=== PATIENT | female | born 1985 | race Caucasian/White ===

== ENCOUNTER 2017-03-30 17:13 | Emergency (ER) | payer BC, MEDICAID ==
[2017-03-30 17:18] VITALS: O2SAT 100
--- NOTE | 2017-03-30 18:06 | C.PDOC ---
Time Seen by Provider: 03/30/17 17:26 Chief Complaint (Nursing): Female Genitourinary Past Medical History Vital Signs: Last Vital Signs Temp 98 F 03/30/17 17:16 Pulse 72 03/30/17 17:16 Resp 20 03/30/17 17:16 BP 145/90 03/30/17 17:16 Pulse Ox 100 03/30/17 17:16 - Medical History PMH: Anemia, Migraine Denies: Chronic Kidney Disease Family History: States: Unknown Family Hx - Social History Hx Tobacco Use: No Hx Alcohol Use: No Hx Substance Use: No - Immunization History Hx Tetanus Toxoid Vaccination: No Hx Influenza Vaccination: No Hx Pneumococcal Vaccination: No ED Course And Treatment O2 Sat by Pulse Oximetry: 100 Disposition - Disposition
--- NOTE | 2017-03-30 18:19 | C.PDOC ---
History Of Present Illness <Edith Lyons - Last Filed: 03/30/17 19:04> <Jyoti Mckoy - Last Filed: 03/30/17 22:04> 31 y/o female c/o dry cough x 1 week and feels sob with exertion, no fever or chills, no leg pain or swelling, no chest pain, pt also with lower abdominal pressure x 4 days with urinary symptoms, and has spotting with urination though the week, pt recently finished a 10 day course of unk antibiotics for uti with return of symptoms. pt learned she is yesterday. (Edith Lyons) History Per: Patient History/Exam Limitations: no limitations Onset/Duration Of Symptoms: Days (5) Current Symptoms Are (Timing): Still Present Severity: Moderate Pain Scale Rating Of: 6 Quality Of Discomfort: Burning Associated Symptoms: Urinary Symptoms. denies: Fever, Chills, Nausea, Vomiting Alleviating Factors: None Recent travel outside of the [place]: No <Edith Lyons - Last Filed: 03/30/17 19:04> <Jyoti Mckoy - Last Filed: 03/30/17 22:04> Time Seen by Provider: 03/30/17 17:26 Chief Complaint (Nursing): Female Genitourinary Past Medical History Reviewed: Historical Data, Nursing Documentation, Vital Signs - Medical History PMH: Anemia, Migraine Denies: Chronic Kidney Disease Family History: States: Unknown Family Hx - Social History Hx Tobacco Use: No Hx Alcohol Use: No Hx Substance Use: No - Immunization History Hx Tetanus Toxoid Vaccination: No Hx Influenza Vaccination: No Hx Pneumococcal Vaccination: No <Edith Lyons - Last Filed: 03/30/17 19:04> Vital Signs: Last Vital Signs Temp 98.6 F 03/30/17 20:56 Pulse 66 03/30/17 20:56 Resp 14 03/30/17 20:56 BP 121/78 03/30/17 20:56 Pulse Ox 100 03/30/17 20:56 Review Of Systems Constitutional: Negative for: Fever, Chills Cardiovascular: Negative for: Chest Pain, Light Headedness Respiratory: Positive for: Cough, SOB with Excertion. Negative for: Hemoptysis , Wheezing Gastrointestinal: Positive for: Abdominal Pain. Negative for: Nausea, Vomiting Genitourinary: Positive for: Dysuria, Frequency, Vaginal Bleeding (spotting with urination) Skin: Negative for: Rash Neurological: Negative for: Weakness, Numbness <Edith Lyons - Last Filed: 03/30/17 19:04> Physical Exam - Physical Exam Appears: Non-toxic, No Acute Distress Skin: Normal Color, Warm, Dry Head: Atraumatic, Normacephalic Neck: Normal ROM, Supple Chest: Symmetrical, No Deformity, No Tenderness Cardiovascular: Rhythm Regular Respiratory: Normal Breath Sounds, No Accessory Muscle Use, No Rales, No Rhonchi , No Stridor, No Wheezing Gastrointestinal/Abdominal: Bowel Sounds, Soft, Tenderness (suprapubic), No Distention, No Guarding, No Rebound Back: No CVA Tenderness <Edith Lyons - Last Filed: 03/30/17 19:04> ED Course And Treatment - Laboratory Results Result Diagrams: 03/30/17 18:25 03/30/17 18:25 O2 Sat by Pulse Oximetry: 100 <Edith Lyons - Last Filed: 03/30/17 19:04> - Laboratory Results Result Diagrams: 03/30/17 18:25 03/30/17 18:25 <Jyoti Mckoy - Last Filed: 03/30/17 22:04> Medical Decision Making <Edith Lyons - Last Filed: 03/30/17 19:04> <Jyoti Mckoy - Last Filed: 03/30/17 22:04> Medical Decision Making: Noted pt is quite anemic,TVUS reveals no IUP.No adnexal masses seen.Spoke with Dr Lassiter who will see pt in ED.No free fluid seen on TVUS. Pt seen by Dr Lassiter of [facility] who feels pt likely miscarried at home,recommends repeat hcg in 2 days.States the pt is chronically anemic due to gastric sleeve placement ( Jyoti Mckoy) Disposition - Disposition Disposition Time: 19:04 <Edith Lyons - Last Filed: 03/30/17 19:04> <Jyoti Mckoy - Last Filed: 03/30/17 22:04> - Disposition Referrals: Carey Lassiter MD [Staff Provider] - Disposition: HOME/ ROUTINE Condition: STABLE Additional Instructions: return to ED for worsening abd pain and or heavy vag bleeding .Otherwise see Dr Lassiter in 2 days for repeat hcg Forms: [employer] ([place]izen [place]), [employer] ([place]) - Clinical Impression Clinical Impression: UTI (urinary tract infection), Anemia, Complete miscarriage Physician Patient Turnover Patient Signed Over To: Jyoti Mckoy Handoff Comments: f/u pelvic u/s labs ua, likely d/c with antibiotics for uti, iron/ vit. <Edith Lyons - Last Filed: 03/30/17 19:04>
[2017-03-30 18:29] LABS: BASO # 0.1 K/uL (0.0-0.2); BASO % 1.2 % (0.0-2.0); EOS # 0.1 K/uL (0.0-0.7); EOS % 1.5 % (0.0-4.0); HEMATOCRIT 26.1 % (34.0-47.0); LYMPH # 2.1 K/uL (1.0-4.3); LYMPH % 39.9 % (20.0-40.0); MEAN CELL VOLUME 72.1 fL (81.0-99.0); MEAN CORPUSCULAR HEMOGLOBIN 22.6 pg (27.0-31.0); MEAN CORPUSCULAR HGB CONC 31.3 g/dL (33.0-37.0); MEAN PLATELET VOLUME 8.9 fL (7.2-11.7); MONO # 0.3 K/uL (0.0-0.8); MONO % 6.2 % (0.0-10.0); RED CELL DISTRIBUTION WIDTH 19.1 % (11.5-14.5); WHITE BLOOD COUNT 5.2 K/uL (4.8-10.8)
[2017-03-30 18:37] LABS: CHLORIDE 100 mmol/L (98-107)
[2017-03-30 18:38] LABS: POTASSIUM 3.8 mmol/L (3.6-5.2); SODIUM 133 mmol/L (132-148)
[2017-03-30 18:40] LABS: ALB/GLOB RATIO 1.1 (1.0-2.1); AST/SGOT 22 U/L (14-36); BILIRUBIN,TOTAL 0.4 mg/dL (0.2-1.3); BLOOD UREA NITROGEN 10 mg/dL (7-17); CARBON DIOXIDE 24 mmol/L (22-30); GFR AFRICAN-AMERICAN > 60; TOTAL PROTEIN 7.8 g/dL (6.3-8.3)
[2017-03-30 18:41] LABS: ALKALINE PHOSPHATASE 46 U/L (38-126); ALT/SGPT 23 U/L (9-52); CALCIUM 8.7 mg/dl (8.6-10.4); GLUCOSE,RANDOM 79 mg/dL (65-105)
[2017-03-30 18:59] LABS: RBC URINE 1 /hpf (0-3); URINE BILIRUBIN NEGATIVE (NEGATIVE); URINE BLOOD 1+ (NEGATIVE); URINE COLOR Yellow (YELLOW); URINE GLUCOSE (UA) NORMAL (Normal); URINE KETONE NEGATIVE (NEGATIVE); URINE LEUKOCYTE ESTERASE NEG Leu/uL (Negative); URINE PROTEIN NEGATIVE (NEGATIVE); WBC URINE 1 /hpf (0-5)
--- NOTE | 2017-03-30 19:49 | US ---
EXAM: US Pelvis Complete, Transabdominal US Pelvis, Transvaginal CLINICAL HISTORY: 31 years old, female; Pain; Pelvic pain; Patient HX: Urine hcg +. Beta not available yet; Additional info: Low ab pain, preg eval for ectopic TECHNIQUE: Real-time transabdominal and transvaginal pelvic ultrasound (complete) with image documentation. Transvaginal imaging was used for better evaluation of the endometrium and adnexa. COMPARISON: No relevant prior studies available. FINDINGS: Uterus/cervix: The uterus measures 11.3 x 5.5 x 6.9 cm. Endometrial stripe is heterogeneous and thickened measuring 3 cm. Right ovary: The right ovary measures 2.6 x 2.1 x 2.8 cm. Blood flow is seen in the right ovary on pulsed Doppler examination. Left ovary: The left ovary measures 3.6 x 3.5 x 4.2 cm and contains 2 simple cysts measuring 2 and 2.6 cm respectively in maximal diameter. Blood flow seen in the left ovary on color Doppler examination. Free fluid: No free fluid. Bladder: Unremarkable as visualized. Wall is normal thickness for degree of distention. IMPRESSION: 1. No evidence of an intrauterine . In the clinical setting of a positive beta hCG and an empty uterus, differential diagnostic considerations include normal very early intrauterine , recently completed and ectopic . Serial beta hCG measurement and followup ultrasound is recommended. 2. Heterogeneous thickened endometrial stripe. The endometrial stripe is better resolved on the transvaginal examination which is detailed in a separate report EXAM: US Pelvis, Transvaginal EXAM DATE/TIME: Exam ordered 03/30/2017 6:02 PM CLINICAL HISTORY: 31 years old, female; Pain; Pelvic pain; Patient HX: Urine hcg +. Beta not available yet; Additional info: Low ab pain, preg eval for ectopic TECHNIQUE: Real-time transvaginal pelvic ultrasound (complete) with image documentation. Transvaginal imaging was used for better evaluation of the endometrium and adnexa. COMPARISON: No relevant prior studies available. FINDINGS: Uterus/cervix: The uterus measures 11.2 x 5 x 6.8 cm. The cervix measures 4.3 cm in length. The endometrial stripe measures 1.4 cm in thickness. There is a intramural posterior corpus fibroid measuring 2.1 x 1.8 x 1.9 cm. The fibroid distorts the adjacent endometrial stripe. There is an anterior corpus intramural fibroid measuring 2.1 x 0.8 x 2.1 cm. Right ovary: The right ovary measures 3.3 x 3 x 3.5 cm. Subcentimeter follicles are present. Left ovary: The left ovary measures 4.6 x 4 x 4.7 cm and contains 2 dominant follicles measuring 2.6 cm and 2 cm respectively in maximum diameter. Blood flow is seen in the left ovary on color Doppler examination. Free fluid: No free fluid. Bladder: Empty bladder which cannot be evaluated with this probe. IMPRESSION: 1. No evidence of an intrauterine . In the clinical setting of a positive beta hCG and an empty uterus, differential diagnostic considerations include normal very early intrauterine , recently completed and ectopic . Serial beta hCG measurement and followup ultrasound is recommended. 2.Fibroid uterus
--- NOTE | 2017-03-30 21:32 | CP.PCM.CON ---
History of Present Illness - History of Present Illness History of Present Illness: 31 y/o @ 4.2 wks by LMP 02/28/2017 AN 12/05/2017 reprots feelign tired and sob over 1 day adn mid lower back pain, no radiatig. pt states she came to ER and found out she was . Pt reports this is an unplanned but desred pregnacy. Pt reports she follows with her retail brand ambassador Dr Haddad regularly. Pt reports some vaigal bleedign 2 days ago, period like. t reports pian is 4/10, non radiaitng, no alleviang or exacebating factors. pt marta any lightheadness, dizzyness, CP, Sob, bowel or bladder complaits. pt reports chornic hx of anemia and denies eatign iron rich rooms or taking iron supplements. OB: FT x 3 hx of preeclampsia, as per pt age 11, 9, 5 years ago [employer]: denies hx of fibroid, ovarian cyst, STI, abnormal pap LMP 02/28/17, q 3 o days x 4 days, dene sintermenstural bleeding or pain IUD removed 1 year ago PMH: Anemia PSH: gastric sleeve FHX: dneies SHX: negative etoh, tobacc/drugs MEDS: none NAllergy: Shellfish Review of Systems - Review of Systems All systems: reviewed and no additional remarkable complaints except - Constitutional Constitutional: As Per HPI - Cardiovascular Cardiovascular: As Per HPI - Respiratory Respiratory: As Per HPI - Gastrointestinal Gastrointestinal: As Per HPI - Genitourinary Genitourinary: As Per HPI - Reproductive: Female Reproductive:Female: As Per HPI Past Patient History - Infectious Disease Hx of Infectious Diseases: None - Past Medical History & Family History Past Medical History?: Yes Past Family History: Reviewed and not pertinent - Past Social History Smoking Status: Never Smoked Chewing Tobacco Use: No Cigar Use: No Alcohol: None - CARDIAC Hx Cardiac Disorders: No - PULMONARY Hx Respiratory Disorders: No - NEUROLOGICAL Hx Migraine: Yes - HEENT Hx HEENT Problems: No - RENAL Hx Chronic Kidney Disease: No - ENDOCRINE/METABOLIC Hx Endocrine Disorders: No - HEMATOLOGICAL/ONCOLOGICAL Hx Anemia: Yes - INTEGUMENTARY Hx Dermatological Problems: No - MUSCULOSKELETAL/RHEUMATOLOGICAL Hx Musculoskeletal Disorders: No - GASTROINTESTINAL Hx Gastrointestinal Disorders: No - GENITOURINARY/GYNECOLOGICAL Hx Genitourinary Disorders: No - PSYCHIATRIC Hx Substance Use: No - SURGICAL HISTORY Hx Surgeries: Yes Hx Gastric Bypass Surgery: Yes (2013) - ANESTHESIA Hx Anesthesia: Yes Hx Anesthesia Reactions: No Meds Allergies/Adverse Reactions: Allergies Allergy/AdvReac Type Severity Reaction Status Date / Time shellfish derived AdvReac VOMITING Verified 03/30/17 17:18 Physical Exam - Constitutional Appears: Well, Non-toxic - Head Exam Head Exam: ATRAUMATIC, NORMAL INSPECTION - Eye Exam Eye Exam: PERRL - ENT Exam ENT Exam: Mucous Membranes Moist, Normal Exam - Neck Exam Neck exam: Positive for: Normal Inspection - Respiratory Exam Respiratory Exam: Clear to Auscultation Bilateral, NORMAL BREATHING PATTERN - Cardiovascular Exam Cardiovascular Exam: +S1, +S2 - GI/Abdominal Exam GI & Abdominal Exam: Normal Bowel Sounds, Soft Additional comments: Non tender, no guardig, no rebound tendernss, no rigidity, +BS - Exam Additional comments: External Genitalia; no gross abnormalites Vagina; No blood, no discharge Cervix; no IUD strings, non tender Uterus: non tender, mobile Adnexa; no masses appreciated, non tender Anus/perineum: grossly normal, block sealer present for evaluation - Extremities Exam Extremities exam: Positive for: normal inspection - Back Exam Back exam: NORMAL INSPECTION Additional comments: negative flank tenderness - Neurological Exam Neurological exam: Alert, CN II-XII Intact, Normal Gait, Oriented x3 - Psychiatric Exam Psychiatric exam: Normal Affect, Normal Mood - Skin Skin Exam: Dry, Intact, Normal Color Results - Vital Signs Recent Vital Signs: Last Vital Signs Temp 98.6 F 03/30/17 20:56 Pulse 66 03/30/17 20:56 Resp 14 03/30/17 20:56 BP 121/78 03/30/17 20:56 Pulse Ox 100 03/30/17 20:56 - Labs Result Diagrams: 03/30/17 18:25 03/30/17 18:25 Labs: Laboratory Results - last 24 hr 03/30/17 03/30/17 03/30/17 18:25 18:25 18:25 WBC 5.2 RBC 3.62 L Hgb 8.2 L Hct 26.1 L MCV 72.1 L MCH 22.6 L MCHC 31.3 L RDW 19.1 H Plt Count 265 MPV 8.9 Neut % (Auto) 51.2 Lymph % (Auto) 39.9 [place] % (Auto) 6.2 Eos % (Auto) 1.5 Baso % (Auto) 1.2 Neut # 2.7 Lymph # 2.1 [place] # 0.3 Eos # 0.1 Baso # 0.1 Sodium 133 Potassium 3.8 Chloride 100 Carbon Dioxide 24 Anion Gap 13 BUN 10 Creatinine 0.6 L Est GFR ( Amer) > 60 Est GFR (Non-Af Amer) > 60 Random Glucose 79 Calcium 8.7 Total Bilirubin 0.4 AST 22 ALT 23 Alkaline Phosphatase 46 Total Protein 7.8 Albumin 4.1 Globulin 3.7 Albumin/Globulin Ratio 1.1 Beta HCG, Quant Urine Color Urine Clarity Urine pH Ur Specific [place] Urine Protein Urine Glucose (UA) Urine Ketones Urine Blood Urine Nitrate Urine Bilirubin Urine Urobilinogen Ur Leukocyte Esterase Urine WBC (Auto) Urine RBC (Auto) Ur Squamous Epith Cells Urine HCG, Qual Positive Blood Type Antibody Screen 03/30/17 03/30/17 03/30/17 18:51 19:00 20:10 WBC RBC Hgb Hct MCV MCH MCHC RDW Plt Count MPV Neut % (Auto) Lymph % (Auto) [place] % (Auto) Eos % (Auto) Baso % (Auto) Neut # Lymph # [place] # Eos # Baso # Sodium Potassium Chloride Carbon Dioxide Anion Gap BUN Creatinine Est GFR ( Amer) Est GFR (Non-Af Amer) Random Glucose Calcium Total Bilirubin AST ALT Alkaline Phosphatase Total Protein Albumin Globulin Albumin/Globulin Ratio Beta HCG, Quant 4164.40 Urine Color Yellow Urine Clarity Clear Urine pH 5.0 Ur Specific [place] 1.025 Urine Protein Negative Urine Glucose (UA) Normal Urine Ketones Negative Urine Blood 1+ H Urine Nitrate Negative Urine Bilirubin Negative Urine Urobilinogen 2.0 H Ur Leukocyte Esterase Neg Urine WBC (Auto) 1 Urine RBC (Auto) 1 Ur Squamous Epith Cells 1 Urine HCG, Qual Blood Type A POSITIVE Antibody Screen Negative Assessment & Plan (1) Early stage of Assessment and Plan: 31 y/o @ 4.2 wks by LMP with early , desired- cannot rule out early vs compelet vs abnormal / ectopic, currently stable - findings dw patient, currenlty stable -reocmmend repeat beta hcg/progesterone in 48 hours -bleeding and pain precautisn given -also f/u OBGYN iwthin 1 week -recommend o/p f/u pcp/hematolgoy re: anemia Status: Acute
[2017-03-30 22:01] VITALS: BP 119/82; PULSE 80; RESP 16; TEMP 98
== END 2017-03-30 22:16 | disposition home or self-care (01) ==
LOC: C.ER 17:13
DX: O26.891 Other specified pregnancy related conditions, first trimester (principal); O23.41 Unspecified infection of urinary tract in pregnancy, first trimester; O99.011 Anemia complicating pregnancy, first trimester; Z3A.01 Less than 8 weeks gestation of pregnancy

== ENCOUNTER 2017-04-19 17:39 | Emergency (ER) | payer BC ==
[2017-04-19 17:49] VITALS: TEMP 98.3
--- NOTE | 2017-04-19 18:05 | C.PDOC ---
History Of Present Illness <Gilda Luna - Last Filed: 04/19/17 18:59> <Pamela Ramos - Last Filed: 04/19/17 21:21> 31 year old female reportedly 7 weeks 1 day by LMP 02/28/17 presents to ED with complaints of lower back pain and vaginal bleeding. Patient states she has been lightly spotting since 03/30 when seen here at the hospital. She was told to follow up with her Ob and made appointment with Dr. Murphy for 05/02/17. Patient states she cannot wait secondary to bleeding, and now bleeding worse with clots noted for 3 days. Patient denies fever, chills, vomiting, dizziness or any other complaints at this time. (Gilda Luna) History Per: Patient History/Exam Limitations: no limitations Onset/Duration Of Symptoms: Days Current Symptoms Are (Timing): Still Present <Gilda Luna - Last Filed: 04/19/17 18:59> <Pamela Ramos - Last Filed: 04/19/17 21:21> Time Seen by Provider: 04/19/17 17:56 Chief Complaint (Nursing): Female Genitourinary Past Medical History Reviewed: Historical Data, Nursing Documentation, Vital Signs - Medical History PMH: Anemia, Migraine Surgical History: No Surg Hx Family History: States: No Known Family Hx - Social History Hx Tobacco Use: No Hx Alcohol Use: No Hx Substance Use: No - Immunization History Hx Tetanus Toxoid Vaccination: No Hx Influenza Vaccination: No Hx Pneumococcal Vaccination: No <Gilda Luna - Last Filed: 04/19/17 18:59> Vital Signs: Last Vital Signs Temp 98.3 F 04/19/17 17:45 Pulse 81 04/19/17 17:45 Resp 18 04/19/17 17:45 BP 116/75 04/19/17 17:45 Pulse Ox 99 04/19/17 18:59 Review Of Systems Constitutional: Negative for: Fever, Chills Gastrointestinal: Negative for: Nausea, Vomiting Genitourinary: Positive for: Vaginal Bleeding Musculoskeletal: Positive for: Back Pain Skin: Negative for: Rash <Gilda Luna - Last Filed: 04/19/17 18:59> Physical Exam - Physical Exam Appears: Non-toxic, No Acute Distress Skin: Warm, Dry, No Rash Head: Atraumatic, Normacephalic Eye(s): bilateral: Normal Inspection, EOMI Oral Mucosa: Moist Neck: Normal ROM, Supple Chest: Symmetrical, No Tenderness Cardiovascular: Rhythm Regular, No Murmur Respiratory: Normal Breath Sounds, No Rales, No Rhonchi, No Wheezing Gastrointestinal/Abdominal: Soft, Tenderness (Mild suprapubic ), No Distention, No Guarding, No Rebound Back: No CVA Tenderness Extremity: Bilateral: Atraumatic, Normal ROM Neurological/Psych: Oriented x3, Normal Speech, Normal Motor, Normal Sensation Gait: Steady <Gilda Luna - Last Filed: 04/19/17 18:59> ED Course And Treatment - Laboratory Results Result Diagrams: 04/19/17 18:07 04/19/17 18:07 O2 Sat by Pulse Oximetry: 99 (RA) Pulse Ox Interpretation: Normal <Gilda Luna - Last Filed: 04/19/17 18:59> - Laboratory Results Result Diagrams: 04/19/17 18:07 04/19/17 18:07 <Pamela Ramos - Last Filed: 04/19/17 21:21> Medical Decision Making <Gilda Luna - Last Filed: 04/19/17 18:59> <Pamela Ramos - Last Filed: 04/19/17 21:21> Medical Decision Making: Impression: with vaginal bleeding possible ectopic vs Prior records reviewed: patient was seen in ED 04/01/17 had labs and US, cannot rule out early vs complete vs abnormal / ectopic. Patient was advised to follow up for repeat BHCG in 48 hours and US in one week Plan: * Labs * [place] Progress: [place] [address] [place], 03/30 BHCG was 4164 H/H 7.03/13 not significantly changed, patient has chronic anemia US is pending. Case signed out to DR Ramos pending US (Gilda Luna) Disposition - Disposition Disposition Time: 19:00 - POA Present On Arrival: None <Gilda Luna - Last Filed: 04/19/17 18:59> Counseled Patient/Family Regarding: Studies Performed, Diagnosis, Need For Followup - Disposition Disposition Time: :20 - POA Present On Arrival: None <Pamela Ramos - Last Filed: 04/19/17 21:21> - Disposition Referrals: Collin Murphy MD [Staff Provider] - Disposition: HOME/ ROUTINE Condition: STABLE Additional Instructions: RETURN TO ER IN 48 HOURS FOR REPEAT ULTRASOUND AND HORMONE LEVEL Instructions: First Trimester Vaginal Bleed (ED) Print Language: SWEDISH - Clinical Impression Clinical Impression: Threatened , Anemia - PA / BROTH SETTER / Resident Statement MD/DO has reviewed & agrees with the documentation as recorded. - Scribe Statement The provider has reviewed the documentation as recorded by the Scribe <Gilda Luna - Last Filed: 04/19/17 18:59> <Pamela Ramos - Last Filed: 04/19/17 21:21> - Scribe Statement Keyla Blanco All medical record entries made by the Scribe were at my direction and personally dictated by me. I have reviewed the chart and agree that the record accurately reflects my personal performance of the history, physical exam, medical decision making, and the department course for this patient. I have also personally directed, reviewed, and agree with the discharge instructions and disposition. (Gilda Luna) Physician Patient Turnover Patient Signed Over To: Pamela Ramos Handoff Comments: Pending US, re-eval and dispo <Gilda Luna - Last Filed: 04/19/17 18:59> Addendum <Gilda Luna - Last Filed: 04/19/17 18:59> <Pamela Ramos - Last Filed: 04/19/17 21:21> Addendum: 04/19/17 21:16 Patient currently resting comfortably, in no pain distress. US shows questionable tiny gestational sac, no evidence of adnexal masses. Beta quant 12k. Explained to patient that there is no current evidence of ectopic, and that at this beta quant level there should be more seen in the uterus. Patient instructed to return to ED in 48 hours for repeat beta and US. She understands she should return to ED sooner if she has worsening symptoms. EXAM: US First Trimester, Transabdominal US , Transvaginal CLINICAL HISTORY: 31 years old, female; Signs and symptoms; Lmp or gestational age (in weeks): 10- 12-17; Other: Bleeding; ; Additional info: Pelvic pain with bleeding TECHNIQUE: Real-time transabdominal and transvaginal obstetrical ultrasound of the maternal pelvis and a first trimester with image documentation. Transvaginal imaging was used for better evaluation of the fetus and adnexa. COMPARISON: PELVIS/TRANSVAG US 2017-03-30 18:32 FINDINGS: Gestation: Uterus measures 11.2 x 5.4 x 6.1 CM. Uterus is heterogeneous. 2 x 1.7 x 1.9 CM posterior fundal fibroid. 1.6 x 1.5 x 1.6 CM right fundal fibroid. Endometrium measures approximately 17 mm in thickness. Tiny, approximately 3 mm subendometrial cyst. Tiny anechoic, thick walled structure in the endometrial canal, too small to fully characterize. This could represent a tiny gestational sac. Uterus/cervix: See above. Ovaries: Right ovary measures 3.9 x 2.9 x 3.4 CM. Left ovary measures 3.9 x 2.7 x 3.5 CM. 2 x 1.8 x 2 CM left ovarian cyst. Free fluid: No free fluid. IMPRESSION: [facility] Final Radiology Report [id number] Name: MICHAEL GARCIA Age: 31Years F Date: 04/19/2017 SSN: [id number] : 1985 Study: US TRANSVAGINAL Requesting Physician: Gilda Luna Images: 92 Addl Studies: [id number] - US TRANSABD FIRST TRIMESTER FIRST GEST (1) Provided Clinical History: pelvic pain with bleeding CONFIDENTIALITY STATEMENT This transmission is confidential and is intended to be a privileged communication. It is intended only for the use of the addressee. Access to this message by anyone else is unauthorized. If you are not the intended recipient, any disclosure, copying, distribution or any action taken, or omitted to be taken in reliance on it is prohibited and may be unlawful. If you received this communication in error, please notify us by telephone, so that return of this document to us can be arranged. Page 2 of 2 1. Questionable, tiny intrauterine gestational sac. 2. Myomatous uterus. 3. 2 CM simple left ovarian cyst. No complex adnexal masses, or free fluid. 4. Recommend clinical followup, serial beta-hCG levels, and repeat ultrasound imaging, if appropriate. Thank you for allowing us to participate in the care of your patient. Dictated and Authenticated by: Ez Escalona M (Afonso, Tania A)
[2017-04-19 18:12] LABS: BASO # 0.1 K/uL (0.0-0.2); BASO % 1.1 % (0.0-2.0); EOS # 0.1 K/uL (0.0-0.7); EOS % 1.8 % (0.0-4.0); HEMATOCRIT 25.9 % (34.0-47.0); LYMPH % 43.5 % (20.0-40.0); MEAN CELL VOLUME 74.4 fL (81.0-99.0); MEAN CORPUSCULAR HEMOGLOBIN 22.7 pg (27.0-31.0); MEAN CORPUSCULAR HGB CONC 30.6 g/dL (33.0-37.0); MEAN PLATELET VOLUME 8.5 fL (7.2-11.7); MONO # 0.3 K/uL (0.0-0.8); MONO % 6.5 % (0.0-10.0); RED CELL DISTRIBUTION WIDTH 19.4 % (11.5-14.5); WHITE BLOOD COUNT 4.6 K/uL (4.8-10.8)
[2017-04-19 18:22] LABS: CHLORIDE 100 mmol/L (98-107); POTASSIUM 3.3 mmol/L (3.6-5.2); SODIUM 134 mmol/L (132-148)
[2017-04-19 18:24] LABS: AST/SGOT 24 U/L (14-36); BILIRUBIN,TOTAL 0.6 mg/dL (0.2-1.3); CARBON DIOXIDE 23 mmol/L (22-30); GFR AFRICAN-AMERICAN > 60
[2017-04-19 18:25] LABS: ALB/GLOB RATIO 1.4 (1.0-2.1); ALKALINE PHOSPHATASE 41 U/L (38-126); ALT/SGPT 25 U/L (9-52); BLOOD UREA NITROGEN 10 mg/dL (7-17); CALCIUM 8.2 mg/dl (8.6-10.4); GLUCOSE,RANDOM 101 mg/dL (65-105); TOTAL PROTEIN 6.9 g/dL (6.3-8.3)
[2017-04-19] MEDS ORDERED: Sodium Chloride 0.9% 1,000 ML IV ONE (18:46)
--- NOTE | 2017-04-19 21:00 | US ---
EXAM: US First Trimester, Transabdominal US , Transvaginal CLINICAL HISTORY: 31 years old, female; Signs and symptoms; Lmp or gestational age (in weeks): 10-12-17; Other: Bleeding; ; Additional info: Pelvic pain with bleeding TECHNIQUE: Real-time transabdominal and transvaginal obstetrical ultrasound of the maternal pelvis and a first trimester with image documentation. Transvaginal imaging was used for better evaluation of the fetus and adnexa. COMPARISON: PELVIS/TRANSVAG US 2017-03-30 18:32 FINDINGS: Gestation: Uterus measures 11.2 x 5.4 x 6.1 CM. Uterus is heterogeneous. 2 x 1.7 x 1.9 CM posterior fundal fibroid. 1.6 x 1.5 x 1.6 CM right fundal fibroid. Endometrium measures approximately 17 mm in thickness. Tiny, approximately 3 mm subendometrial cyst. Tiny anechoic, thick walled structure in the endometrial canal, too small to fully characterize. This could represent a tiny gestational sac. Uterus/cervix: See above. Ovaries: Right ovary measures 3.9 x 2.9 x 3.4 CM. Left ovary measures 3.9 x 2.7 x 3.5 CM. 2 x 1.8 x 2 CM left ovarian cyst. Free fluid: No free fluid. IMPRESSION: 1. Questionable, tiny intrauterine gestational sac. 2. Myomatous uterus. 3. 2 CM simple left ovarian cyst. No complex adnexal masses, or free fluid. 4. Recommend clinical followup, serial beta-hCG levels, and repeat ultrasound imaging, if appropriate.
[2017-04-19 21:28] VITALS: BP 110/85; PULSE 78; RESP 16; O2SAT 98
== END 2017-04-19 21:27 | disposition home or self-care (01) ==
LOC: C.ER 17:39
DX: O20.0 Threatened abortion (principal); O99.011 Anemia complicating pregnancy, first trimester; Z3A.01 Less than 8 weeks gestation of pregnancy

== ENCOUNTER 2017-10-20 17:47 | Inpatient (IN) | payer BC ==
[2017-10-20 17:47] VITALS: BMI 28.3
[2017-10-20 18:24] LABS: HCG,QUALITATIVE URINE POSITIVE (NEGATIVE)
[2017-10-20] MEDS ORDERED: Sodium Chloride 0.9% 1,000 ML IV ONE (18:25)
[2017-10-20 18:27] LABS: SQUAMOUS EPITHIAL 3 /hpf (0-5); URINE BACTERIA MANY (<OCC); URINE BILIRUBIN NEGATIVE (NEGATIVE); URINE BLOOD 1+ (NEGATIVE); URINE CLARITY Hazy (Clear); URINE COLOR Amber (YELLOW); URINE GLUCOSE (UA) NORMAL (Normal); URINE LEUKOCYTE ESTERASE 3+ Leu/uL (Negative); URINE PROTEIN 1+ mg/dL (NEGATIVE)
[2017-10-20 18:51] LABS: VENOUS BLOOD GAS BASE EXCESS 0.4 mmol/L (0.0-2.0); VENOUS BLOOD GAS PCO2 31 mmHg (40-60); VENOUS BLOOD GAS PO2 49 mm/Hg (30-55); VENOUS BLOOD PH 7.48 (7.32-7.43)
[2017-10-20 18:52] LABS: BASO % 0.2 % (0.0-2.0); EOS % 0.1 % (0.0-4.0); LYMPH % 10.9 % (20.0-40.0); MEAN CELL VOLUME 66.9 fL (81.0-99.0); MEAN CORPUSCULAR HEMOGLOBIN 21.1 pg (27.0-31.0); MEAN CORPUSCULAR HGB CONC 31.6 g/dL (33.0-37.0); MEAN PLATELET VOLUME 8.4 fL (7.2-11.7); MONO # 1.2 K/uL (0.0-0.8); MONO % 12.8 % (0.0-10.0); NEUT # 6.8 K/uL (1.8-7.0); NRBC % 0.7 % (0.0-2.0); RBC 2.87 Mil/uL (3.80-5.20); RED CELL DISTRIBUTION WIDTH 19.1 % (11.5-14.5)
[2017-10-20 18:55] LABS: HEMOGLOBIN 6.1 g/dL (11.0-16.0)
[2017-10-20 18:58] LABS: ALB/GLOB RATIO 0.9 (1.0-2.1); ALBUMIN 3.2 g/dL (3.5-5.0); ALT/SGPT 12 U/L (9-52); AST/SGOT 25 U/L (14-36); BLOOD UREA NITROGEN 5 mg/dL (7-17); CALCIUM 8.5 mg/dl (8.6-10.4); GFR AFRICAN-AMERICAN > 60; GFR NON-AFRICAN AMERICAN > 60; LIPASE 69 U/L (23-300)
[2017-10-20] MEDS ORDERED: cefTRIAXone IV 1 gm in Dextros 50 ML IVPB STA (19:25)
[2017-10-20] MEDS ORDERED: cefTRIAXone IV 1 gm in Dextros 50 ML IVPB ONE (19:52)
[2017-10-20] MEDS ORDERED: Sodium Chloride 0.9% 1,000 ML ONE (19:52)
--- NOTE | 2017-10-20 21:56 | US ---
EXAM: US Retroperitoneal Complete, Renal EXAM DATE/TIME: 10/20/2017 6:28 PM CLINICAL HISTORY: 32 years old, female; Pain; Other: Rt flank pain; ; Additional info: Uti, fever, right flank pain, pyelonephritis? TECHNIQUE: Real-time ultrasound of the retroperitoneum (complete) with image documentation. COMPARISON: There are no prior studies for comparison. FINDINGS: Right kidney: Right kidney measures approximately 12 x 6 x 6 cm. There is no pelvocaliectasis. Corticomedullary differentiation is maintained. There is intrarenal flow on color Doppler imaging. Left kidney: Left kidney measures approximately 12 x 5 x 5 cm. Corticomedullary differentiation is maintained. There is no pelvocaliectasis. There is intrarenal flow on color Doppler imaging. Bladder: Partially distended bladder is normal in appearance. Estimated volume is approximately 160 cc. Right ureteral jet was seen on color Doppler imaging. Left ureteral jet was not identified. Other findings: There is an intrauterine gestation. IMPRESSION: Normal size kidneys, no hydronephrosis
--- NOTE | 2017-10-20 22:10 | US ---
EXAM: US Uterus, Limited EXAM DATE/TIME: 10/20/2017 6:30 PM CLINICAL HISTORY: 32 years old, female; Pain; Other: Rt flank pain; Gestational age or lmp: 21wks 2 d; ; Additional info: Pain, fever, R/O ectopic or infection. TECHNIQUE: Real-time ultrasound of the maternal uterus (limited) with image documentation. COMPARISON: RENAL/URINARY BLADDER US 2017-10-20 19:43 FINDINGS: Gestation: There is a single living intrauterine gestation in transverse presentation. There is a heart rate of 152 beats per minute. Placenta: Placenta is posterior. There is no previa. Amniotic fluid: Fluid volume appears normal. Anatomy: Formal anatomic survey was not performed. BIOMETRICS BPD: 5.06 cm, 21 weeks 2 days HC: 18.82 cm, 21 weeks 1 day AC: 16.58 cm, 21 weeks 4 days FL: 3.47 cm, 21 weeks 0 days GA: 21 weeks 2 days EFW: 412 g AN: 02/28/18 MATERNAL: Uterus: There is a 3.6 x 2 x 3 cm fundal fibroid Cervix: Cervix measures approximate 4 cm in length IMPRESSION: 21 week 2 day single living intrauterine gestation, estimated date of delivery 02/28/18
--- NOTE | 2017-10-20 22:27 | C.PDOC ---
Time Seen by Provider: 10/20/17 18:13 Chief Complaint (Nursing): Abdominal Pain History Per: Patient Onset/Duration Of Symptoms: Days (3) Current Symptoms Are (Timing): Still Present Severity: Moderate Location Of Pain/Discomfort: Other (Right flank) Radiation Of Pain To:: Back Quality Of Discomfort: "Pain" Associated Symptoms: Fever, Chills, Nausea, Back Pain, Constipation, Urinary Symptoms Alleviating Factors: None Additional History Per: Prior Records Abnormal Vaginal Bleeding: No Last Menstral Period: April 2017 Past Medical History Reviewed: Historical Data, Nursing Documentation, Vital Signs Vital Signs: Last Vital Signs Temp 98.1 F 10/20/17 21:04 Pulse 78 10/20/17 21:04 Resp 20 10/20/17 21:04 BP 111/64 10/20/17 21:04 Pulse Ox 98 10/20/17 21:04 - Medical History PMH: Anemia, Migraine Family History: States: Unknown Family Hx - Social History Hx Tobacco Use: No Hx Alcohol Use: No Hx Substance Use: No - Immunization History Hx Tetanus Toxoid Vaccination: No Hx Influenza Vaccination: No Hx Pneumococcal Vaccination: No Review Of Systems Except As Marked, All Systems Reviewed And Found Negative. Constitutional: Positive for: Fever, Chills, Malaise Cardiovascular: Negative for: Chest Pain Respiratory: Negative for: Shortness of Breath Gastrointestinal: Positive for: Abdominal Pain, Constipation. Negative for: Melena, Hematochezia, Hematemesis Genitourinary: Positive for: Dysuria, Frequency. Negative for: Vaginal Bleeding Musculoskeletal: Positive for: Back Pain. Negative for: Neck Pain Skin: Negative for: Rash Neurological: Negative for: Weakness, Numbness Physical Exam - Physical Exam Appears: Non-toxic, No Acute Distress Skin: Warm, Dry, Pale Head: Atraumatic, Normacephalic Eye(s): bilateral: PERRL, EOMI Neck: Normal ROM, Supple Cardiovascular: Rhythm Regular Respiratory: Normal Breath Sounds, No Accessory Muscle Use Gastrointestinal/Abdominal: Soft, Tenderness (right sided), Distention, No Guarding, No Rebound Back: CVA Tenderness (right) Extremity: Normal ROM Neurological/Psych: Oriented x3, Normal Motor, Normal Sensation ED Course And Treatment - Laboratory Results Result Diagrams: 10/20/17 18:41 10/20/17 18:41 Lab Interpretation: Abnormal Interpretation Of Abnormal: Anemia. UTI. Urine POC: Positive O2 Sat by Pulse Oximetry: 98 Pulse Ox Interpretation: Normal - CT Scan/US Renal US Other Rad Studies (CT/US): Read By Radiologist, Radiology Report Reviewed CT/US Interpretation: IMPRESSION: Normal size kidneys, no hydronephrosis Pelvic US Other Rad Studies (CT/US): Read By Radiologist, Radiology Report Reviewed CT/US Interpretation: IMPRESSION: 21 week 2 day single living intrauterine gestation, estimated date. of delivery 02/28/18 Progress - Interventions Interventions:: Observation, Intravenous fluid - Medications Administered Oral: Acetaminophen Intravenous: Other (Abx) - Data Reviewed Data Reviewed: Lab, Diagnostic imaging, Old records - Patient Status Patient status: Partially improved - Continuity of Care Discussed patient case with:: Patient, Family-HIPPA compliant, ED Nurse Discussed pt. case with webmethods consultant/specialty: Obstetrics/Gynecology - Patient Plan Patient Plan: Admission Disposition Discussed With : Elke Malik Comment: She accepted pt on her service. Doctor Will See Patient In The: Hospital Counseled Patient/Family Regarding: Studies Performed, Diagnosis - Disposition Disposition: HOSPITALIZED Disposition Time: 22:30 Condition: GUARDED - Clinical Impression Clinical Impression: Acute pyelonephritis in second trimester, antepartum, Anemia
[2017-10-21] MEDS ORDERED: Multivitamin (MVI) 10 ML, Thiamine 100 MG, Folic Acid 1 MG in Sodium Chloride 0.9% 1,00... IV ONE
--- NOTE | 2017-10-21 00:39 | OBHP ---
Datetime: 10/21/2017 00:28 IP Adm Impression Other: pyelonephritis IP Admit Plan: Admit to unit Admit Comment, IP Provider: 32 yo edc 02/28 by us today presented to ed w/ c/o of severe back pain and fever. Pt diagnosed with pyelonephritis and learned she was today she denies regular menses, pelvic pain or irreg vag bleeding. she states she was told she had a co mplete sab in 05/05 and never had another menses since obhx: x3 pshx: gastric sleeve 2012 nkda medic: biotin; otc diet pill shx:denies etoh, drugs or tobacco I Pyelonephritis 21.2wks no care Anemia-? secondary to gastric sleeve ama p: ceftriaxone ivf w/ multivit serum ferritin consider transfusion Extremities - PN: Normal Back - PN: Abnormal Lungs - PN: Normal Thyroid - PN: Normal Neurologic - PN: Normal HEENT - PN: Normal General - PN: Normal FHR - Baseline A Provider: 152 Contraction Comments Provider: no Comments, ACOG Physical Exam: rt sided cva tenderness ob us today: 21.2wks edc 02/28/18 IP Chief Complaint: Other
--- NOTE | 2017-10-21 11:28 | CP.PCM.PN ---
Subjective - Date & Time of Evaluation Date of Evaluation: 10/21/17 Time of Evaluation: 11:26 - Subjective Subjective: Pt admitted for pyelnophritis and found to be anemic. Admitted for IV medications and blood transfusion. Objective - Vital Signs/Intake and Output Vital Signs (last 24 hours): Temp Pulse Resp BP Pulse Ox 99.3 F 100 H 18 122/81 98 10/21/17 08:00 10/21/17 08:00 10/21/17 08:00 10/21/17 08:00 10/21/17 08:00 - Medications Medications: Current Medications Acetaminophen (Tylenol 325mg Tab) 650 mg PO Q6 PRN PRN Reason: Fever >100.4 F Last Admin: 10/21/17 08:47 Dose: 650 mg Ceftriaxone Sodium (Rocephin Iv 1 Gm Duplex) 50 mls @ 100 mls/hr IVPB DAILY DREA PRN Reason: Protocol - Labs Labs: 10/20/17 18:41 10/20/17 18:41 Assessment and Plan - Assessment and Plan (Free Text) Assessment: Pyelonepritis & Anemia. 1)ADMIT start IV ABx 2) Transfuse 2 units.
[2017-10-21] MEDS: cefTRIAXone IV 1 gm in Dextros 50 ML IVPB SCH (19:21)
[2017-10-22 00:22] LABS: BASO % 0.4 % (0.0-2.0); EOS % 0.2 % (0.0-4.0); LYMPH # 1.2 K/uL (1.0-4.3); LYMPH % 12.1 % (20.0-40.0); MEAN CELL VOLUME 69.1 fL (81.0-99.0); MEAN CORPUSCULAR HEMOGLOBIN 22.8 pg (27.0-31.0); MEAN CORPUSCULAR HGB CONC 33.1 g/dL (33.0-37.0); MEAN PLATELET VOLUME 8.6 fL (7.2-11.7); MONO # 1.2 K/uL (0.0-0.8); MONO % 12.4 % (0.0-10.0); NEUT # 7.1 K/uL (1.8-7.0); NEUT % 74.9 % (50.0-75.0); NRBC % 0.6 % (0.0-2.0); RBC 3.07 Mil/uL (3.80-5.20); RED CELL DISTRIBUTION WIDTH 19.9 % (11.5-14.5); WHITE BLOOD COUNT 9.5 K/uL (4.8-10.8)
[2017-10-22 00:39] VITALS: RESP 20
[2017-10-22 07:47] LABS: BASO % 0.4 % (0.0-2.0); EOS % 0.2 % (0.0-4.0); HEMOGLOBIN 7.7 g/dL (11.0-16.0); LYMPH # 1.2 K/uL (1.0-4.3); LYMPH % 11.8 % (20.0-40.0); MEAN CELL VOLUME 69.2 fL (81.0-99.0); MEAN CORPUSCULAR HEMOGLOBIN 22.1 pg (27.0-31.0); MEAN PLATELET VOLUME 8.5 fL (7.2-11.7); MONO # 0.9 K/uL (0.0-0.8); MONO % 8.7 % (0.0-10.0); NEUT # 8.2 K/uL (1.8-7.0); NEUT % 78.9 % (50.0-75.0); NRBC % 0.4 % (0.0-2.0); RBC 3.49 Mil/uL (3.80-5.20); RED CELL DISTRIBUTION WIDTH 19.9 % (11.5-14.5); WHITE BLOOD COUNT 10.4 K/uL (4.8-10.8)
[2017-10-22] MEDS: cefTRIAXone IV 1 gm in Dextros 50 ML IVPB SCH (10:03)
--- NOTE | 2017-10-22 21:46 | OBPN ---
Datetime: 10/22/2017 18:35 IP Progress Plan: Continue present management IP Progress Note Comment: Patient received and evaluated in room 455 at approximately 1045 hours: r eports right-sided back pain has improved. Denies fever, chills, nausea, vomiting; (+) BM P.E.: WD in NAD; pale. Awake, alert, oriented to time, person and place. Pleasant and cooperative Lungs: CTA bilaterally Cardiac: RRR, normal S1, S2 Back: minimal right CVA tenderness Abdomen: soft, non tender in all quadrants Extremities: pale, warm, dry and intact. Good dorsal pedalis pulses, bilaterally Labs: H/H 7.7/24.2; WBC Urine cultures = E. coli. HD#2. 32 y.o. P3, 21w 4d by [facility] on admission 10/18/17, pyelonephritis on cefoxitin. T max = 100.1, 1843 hours 10/21/17 - currently afebrile. Severe anemia; S/P 2 units PRBCs - follow up H/H noted. This is an undesired ; desires to terminate. Patient is clinically stable. Plan: 1) CBC in AM 2) Possible discharge home 10/23/17 Datetime: 10/21/2017 00:28 Contraction Comments Provider: no FHR - Baseline A Provider: 152
[2017-10-23 07:47] VITALS: BP 116/71; PULSE 78; TEMP 97.2; O2SAT 99
[2017-10-23 07:57] LABS: HEMOGLOBIN 7.4 g/dL (11.0-16.0); MEAN CELL VOLUME 69.3 fL (81.0-99.0); MEAN CORPUSCULAR HEMOGLOBIN 22.3 pg (27.0-31.0); MEAN CORPUSCULAR HGB CONC 32.2 g/dL (33.0-37.0); MEAN PLATELET VOLUME 8.8 fL (7.2-11.7); RBC 3.33 Mil/uL (3.80-5.20); RED CELL DISTRIBUTION WIDTH 20.1 % (11.5-14.5); WHITE BLOOD COUNT 8.3 K/uL (4.8-10.8)
--- NOTE | 2017-10-23 08:24 | CP.PCM.DIS ---
Provider - Provider Date of Admission: 10/20/17 22:31 Attending physician: Elke Malik MD Time Spent in preparation of Discharge (in minutes): 20 Hospital Course - Lab Results Lab Results: Micro Results 10/20/17 18:40 Blood Blood Culture - Preliminary NO GROWTH AFTER 48 HOURS 10/20/17 18:30 Blood Blood Culture - Preliminary NO GROWTH AFTER 48 HOURS 10/20/17 Unknown Urine Urine Culture - Final Escherichia Coli Most Recent Lab Values WBC 8.3 K/uL (4.8-10.8) 10/23/17 07:52 RBC 3.33 Mil/uL (3.80-5.20) L 10/23/17 07:52 Hgb 7.4 g/dL (11.0-16.0) L 10/23/17 07:52 Hct 23.1 % (34.0-47.0) L 10/23/17 07:52 MCV 69.3 fL (81.0-99.0) L 10/23/17 07:52 MCH 22.3 pg (27.0-31.0) L 10/23/17 07:52 MCHC 32.2 g/dL (33.0-37.0) L 10/23/17 07:52 RDW 20.1 % (11.5-14.5) H 10/23/17 07:52 Plt Count 276 K/uL (130-400) 10/23/17 07:52 MPV 8.8 fL (7.2-11.7) 10/23/17 07:52 Neut % (Auto) 78.9 % (50.0-75.0) H 10/22/17 07:35 Lymph % (Auto) 11.8 % (20.0-40.0) L 10/22/17 07:35 Gem % (Auto) 8.7 % (0.0-10.0) 10/22/17 07:35 Eos % (Auto) 0.2 % (0.0-4.0) 10/22/17 07:35 Baso % (Auto) 0.4 % (0.0-2.0) 10/22/17 07:35 Neut # (Auto) 8.2 K/uL (1.8-7.0) H 10/22/17 07:35 Lymph # (Auto) 1.2 K/uL (1.0-4.3) 10/22/17 07:35 Gem # (Auto) 0.9 K/uL (0.0-0.8) H 10/22/17 07:35 Eos # (Auto) 0.0 K/uL (0.0-0.7) 10/22/17 07:35 Baso # (Auto) 0.0 K/uL (0.0-0.2) 10/22/17 07:35 Differential Comment 10/22/17 07:35 pO2 49 mm/Hg (30-55) 10/20/17 18:46 VBG pH 7.48 (7.32-7.43) H 10/20/17 18:46 VBG pCO2 31 mmHg (40-60) L 10/20/17 18:46 VBG HCO3 25.0 mmol/L 10/20/17 18:46 VBG Total CO2 24.1 mmol/L (22-28) 10/20/17 18:46 VBG O2 Sat (Calc) 88.5 % (40-65) H 10/20/17 18:46 VBG Base Excess 0.4 mmol/L (0.0-2.0) 10/20/17 18:46 VBG Potassium 3.6 mmol/L (3.6-5.2) 10/20/17 18:46 Sodium 137.0 mmol/l (132-148) 10/20/17 18:46 Chloride 105.0 mmol/L (98-107) 10/20/17 18:46 Glucose 91 mg/dl (65-105) 10/20/17 18:46 Lactate 1.3 mmol/L (0.7-2.1) 10/20/17 18:46 FiO2 21.0 % 10/20/17 18:46 Sodium 135 mmol/L (132-148) 10/20/17 18:41 Potassium 3.8 mmol/L (3.6-5.2) 10/20/17 18:41 Chloride 103 mmol/L (98-107) 10/20/17 18:41 Carbon Dioxide 24 mmol/L (22-30) 10/20/17 18:41 Anion Gap 13 (10-20) 10/20/17 18:41 BUN 5 mg/dL (7-17) L 10/20/17 18:41 Creatinine 0.5 mg/dL (0.7-1.2) L 10/20/17 18:41 Est GFR ( Amer) > 60 10/20/17 18:41 Est GFR (Non-Af Amer) > 60 10/20/17 18:41 Random Glucose 96 mg/dL (65-105) 10/20/17 18:41 Calcium 8.5 mg/dl (8.6-10.4) L 10/20/17 18:41 Ferritin 6.8 ng/mL 10/21/17 00:14 Total Bilirubin 0.4 mg/dL (0.2-1.3) 10/20/17 18:41 AST 25 U/L (14-36) 10/20/17 18:41 ALT 12 U/L (9-52) 10/20/17 18:41 Alkaline Phosphatase 81 U/L (38-126) 10/20/17 18:41 Total Protein 6.9 g/dL (6.3-8.3) 10/20/17 18:41 Albumin 3.2 g/dL (3.5-5.0) L 10/20/17 18:41 Globulin 3.7 gm/dL (2.2-3.9) 10/20/17 18:41 Albumin/Globulin Ratio 0.9 (1.0-2.1) L 10/20/17 18:41 Lipase 69 U/L (23-300) 10/20/17 18:41 Beta HCG, Quant 54367.00 mIU/ML 10/20/17 18:41 Venous Blood Potassium 3.6 mmol/L (3.6-5.2) 10/20/17 18:46 Urine Color Paige (YELLOW) 10/20/17 18:16 Urine Clarity Hazy (Clear) 10/20/17 18:16 Urine pH 5.0 (5.0-8.0) 10/20/17 18:16 Ur Specific [place] 1.016 (1.003-1.030) 10/20/17 18:16 Urine Protein 1+ mg/dL (NEGATIVE) H 10/20/17 18:16 Urine Glucose (UA) Normal mg/dL (Normal) 10/20/17 18:16 Urine Ketones Negative mg/dL (NEGATIVE) 10/20/17 18:16 Urine Blood 1+ (NEGATIVE) H 10/20/17 18:16 Urine Nitrate Positive (NEGATIVE) H 10/20/17 18:16 Urine Bilirubin Negative (NEGATIVE) 10/20/17 18:16 Urine Urobilinogen 4.0 mg/dL (0.2-1.0) H 10/20/17 18:16 Ur Leukocyte Esterase 3+ Aruna/uL (Negative) H 10/20/17 18:16 Urine WBC (Auto) 69 /hpf (0-5) H 10/20/17 18:16 Urine RBC (Auto) 9 /hpf (0-3) H 10/20/17 18:16 Ur Squamous Epith Cells 3 /hpf (0-5) 10/20/17 18:16 Ur Transition Epith Cell < 1 /hpf (0-3) 10/20/17 18:16 Urine Bacteria Many (<OCC) H 10/20/17 18:16 Urine HCG, Qual Positive (NEGATIVE) 10/20/17 18:16 Blood Type A POSITIVE 10/21/17 08:28 Antibody Screen Negative 10/21/17 08:28 - Hospital Course Hospital Course: PT presented to the ER with complaints of flank pain. Pt was found to have Ecoli UTI. Pt was treated with ceftriazone IV. She was then found to be anemic. Sheher hgb on admission was 6.1 She was admitted and given 2 Units of blood. her repeat cbc was 7.4. She is doing well and is asymptomatic. She also discovered that she is newly . She is not sure at this point whether she wants to keep the . Pt will be sent home with 2 weeks of abx ( keflex). She will be given iron supplements (ferrous sulfate 325mg PO TID) daily x 30 days. She will be given PNV to be taken daily. At this point, we are not sure whether she will be able to have a termination this later during the . Pt to follow up in 2 weeks with her CLAM GRADER. Discharge Exam - Head Exam Head Exam: ATRAUMATIC, NORMAL INSPECTION - Eye Exam Eye Exam: Normal appearance - ENT Exam ENT Exam: Mucous Membranes Dry - GI/Abdominal Exam GI & Abdominal Exam: Unremarkable Discharge Plan - Discharge Medications Prescriptions: Cephalexin [Keflex] 250 mg PO BID 14 Days #28 capsule Ferrous Sulfate 325 mg PO TID 30 Days #90 tablet 86/Iron/Folic/Dha/Epa [Nestabs Abc Combo Pk] 1 each PO DAILY 30 Days #30 combo..pkg - Follow Up Plan Condition: GOOD Disposition: HOME/ ROUTINE Patient education suggested?: Yes
[2017-10-23] MEDS: cefTRIAXone IV 1 gm in Dextros 50 ML IVPB SCH (09:17)
== END 2017-10-23 10:50 | disposition home or self-care (01) | DRG 781 ==
LOC: C.ER 17:47 → C.4M 22:31
PROVIDERS: ADMIT Obstetrics & Gynecology; ATTEND Obstetrics & Gynecology
DX: O23.02 Infections of kidney in pregnancy, second trimester (principal); N10 Acute pyelonephritis; B96.20 Unspecified Escherichia coli [E. coli] as the cause of diseases classified elsewhere; D64.9 Anemia, unspecified; Z3A.21 21 weeks gestation of pregnancy

== ENCOUNTER 2018-06-27 17:39 | Emergency (ER) | payer BC ==
[2018-06-27 18:14] VITALS: BMI 27.4
[2018-06-27 18:24] VITALS: BP 148/90; PULSE 63; RESP 20; TEMP 98.5; O2SAT 100
--- NOTE | 2018-06-27 20:17 | C.PDOC ---
History Of Present Illness Patient is a 33 year old female who presents to the ED for a "blood test." Patient states she has had an IUD placed since October and was having normal periods, but missed one in May. She says that a home came back negative. Patient also notes mild pain to lower back that she says is due to her recent home reorganization, which included her moving her couch. Patient denies any vaginal bleeding, abdominal pain, or UTI symptoms. Time Seen by Provider: 06/27/18 19:43 Chief Complaint (Nursing): Female Genitourinary History Per: Patient History/Exam Limitations: no limitations Onset/Duration Of Symptoms: Days Current Symptoms Are (Timing): Still Present Quality Of Discomfort: "Pain" (mild) Additional History Per: Patient Past Medical History Reviewed: Historical Data, Nursing Documentation, Vital Signs Vital Signs: Last Vital Signs Temp 98.5 F 06/27/18 18:14 Pulse 63 06/27/18 18:14 Resp 20 06/27/18 18:14 BP 148/90 06/27/18 18:14 Pulse Ox 100 06/27/18 18:14 - Medical History PMH: Anemia, Migraine Denies: Depression, Diabetes, HTN, Chronic Kidney Disease Surgical History: No Surg Hx Family History: States: Unknown Family Hx - Social History Hx Tobacco Use: No Hx Alcohol Use: No Hx Substance Use: No - Immunization History Hx Tetanus Toxoid Vaccination: No Hx Influenza Vaccination: No Hx Pneumococcal Vaccination: No Review Of Systems Gastrointestinal: Negative for: Abdominal Pain Genitourinary: Negative for: Vaginal Bleeding, Other (UTI symptoms ) Musculoskeletal: Positive for: Back Pain (mild pain to right lower back ) Physical Exam - Physical Exam Appears: Non-toxic, No Acute Distress Skin: Normal Color, Warm, Dry Head: Atraumatic, Normacephalic Oral Mucosa: Moist Neck: Normal ROM, Supple Chest: Symmetrical, No Deformity Cardiovascular: Rhythm Regular, No Murmur Respiratory: Normal Breath Sounds, No Rales, No Rhonchi, No Wheezing Gastrointestinal/Abdominal: Soft, No Tenderness, No Guarding, No Rebound Back: No Vertebral Tenderness, No Paraspinal Tenderness Pelvic: No Other (deferred) Neurological/Psych: Oriented x3 ED Course And Treatment O2 Sat by Pulse Oximetry: 100 (on RA) Pulse Ox Interpretation: Normal Progress Note: POC UCG was done and was found to be negative. Upon reassessment, patient was stable for discharge. Patient was instructed to follow up with OBGYN. Disposition Counseled Patient/Family Regarding: Diagnosis, Need For Followup - Disposition Referrals: [facility] [Outside] Disposition: HOME/ ROUTINE Disposition Time: 20:14 Condition: STABLE Additional Instructions: Please follow up with PMD Tylenol or advil for pain Return to ER if worse Forms: [facility] (Latvian), General Discharge Instructions - Clinical Impression Clinical Impression: test negative - PA / BOW MACHINE OPERATOR / Resident Statement MD/DO has reviewed & agrees with the documentation as recorded. - Scribe Statement The provider has reviewed the documentation as recorded by the Faniibsri Shepherd All medical record entries made by the Faniibsri were at my direction and personally dictated by me. I have reviewed the chart and agree that the record accurately reflects my personal performance of the history, physical exam, medical decision making, and the department course for this patient. I have also personally directed, reviewed, and agree with the discharge instructions and disposition.
== END 2018-06-27 20:27 | disposition home or self-care (01) ==
LOC: C.ER 17:39
DX: Z32.02 Encounter for pregnancy test, result negative (principal)